=== PATIENT | female | born 1975 | race Caucasian/White ===

== ENCOUNTER 2016-06-07 18:21 | Emergency (ER) | payer OTHER ==
[~2016-06-07] VITALS: Ht 160 cm; Wt 92.1 kg
[2016-06-07 18:34] VITALS: BP 100/69
[2016-06-07] MEDS ORDERED: ROB PO (18:36)
--- NOTE | 2016-06-07 21:08 | NUR ---
TO ER BED 4
--- NOTE | 2016-06-07 21:09 | NUR ---
PT C/O COUGHING FOR 2 WEEKS AND CHEST PAIN WHEN COUGHING.
[2016-06-07 21:59] VITALS: BP 105/67
--- NOTE | 2016-06-07 22:00 | NUR ---
Patient discharged with v/s stable BY DR. DUKE. Written and verbal after care instructions given and explained. Patient alert, oriented and verbalized understanding of instructions. Ambulatory with steady gait. All questions addressed prior to discharge. ID band removed. Patient advised to follow up with PMD. Rx of AUGMENTIN 875MG PO, CODEINE PHOSPHATE/PROMETHAZINE HYDROCHLORIDE 10MG-6.25MG/5ML PO given. Patient educated on indication of medication including possible reaction and side effects. Opportunity to ask questions provided and answered.
== END 2016-06-07 22:00 | disposition home or self-care (01) ==
LOC: MED 18:21
DX: J20.9 Acute bronchitis, unspecified (principal)
CPT/HCPCS: 81002; 81025; 99283